=== PATIENT | female | born 1945 | race Caucasian/White ===

== ENCOUNTER 2023-02-22 10:11 | Outpatient (AMB) | payer OTHER, SELFPAY ==
--- NOTE | 2023-02-22 10:13 | A.OFFVIS_ITS ---
Intake Vital Signs 02/22/23 10:15 Height 5 ft 3 in Weight 145 lb 2 oz BMI 25.7 BP 142/78 H Blood Pressure Location Lt brachial Position Sitting Respiration 16 Pulse 81 Pulse Source Pulse Oximeter Pulse Oximetry (%) 96 Oxygen Delivery Method Room Air Intake Visit Reasons: [employer]-Gait disturbance - Confirmed Intake Note: Pt presents to the office for new pt evaluation for gait disturbance. 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 Pt reports sge had left pelvic fx in 2020, and the gait problem started after the pelvic fx. She has jerking movement when she walks. It happens on her left leg, and it happens occasionally. She does not fall, but she could catch herself before falling. She used to ride a bicycle, but not anymore. She always skiing in winter, but she decided not to ski due to osteoporosis. Denies numbness or tigngling on her left leg. Denies any pain her joint or stiffness. Denies light headedness. Denies tremors. Denies difficulty swallowing or drooling. Donny constipation. Aslome REM behavior. Denies difficulty holding urine. [facility] Surgical History (Updated 02/22/23 @ 10:22 by Linda Bowie CMA) H/O foot surgery S/P appendectomy H/O heart surgery Social History (Updated 02/22/23 @ 10:23 by Linda Bowie CMA) Household Members: None Housing: House Alcohol intake: current Comment: wine Patient Tobacco Use Status: Never used Tobacco Review of Systems Const All systems reviewed & are unremarkable except as noted in HPI and below Physical Exam Vital Signs: Last Vital Signs Pulse 81 02/22/23 10:15 Resp 16 02/22/23 10:15 BP 142/78 H 02/22/23 10:15 Pulse Ox 96 02/22/23 10:15 Oxygen Delivery Method Room Air 02/22/23 10:15 BMI result Body Mass Index 25.7 Const Other: walking good steps, left tilted. has small bilateral arm swing. Orientation/consciousness: patient oriented x3 Neuro General: patient oriented x3 Cranial nerves: Yes CN's II-XII intact bilaterally Cognition (Neuro): normal cognition Gait exam (Neuro): Normal gait present (mildly stopped, has good steps, but her left leg little move inward.) Motor exam (neuro): 5/5 motor strength present throughout, Pronator motor function not present and no tremor noted Deep tendon reflexes (DTR's): Rt Biceps (C5, C6): 2+, Left biceps reflex intensity grade: 2+, Right brachioradialis reflex intensity grade: 2+, Left brachioradialis reflex intensity grade: 2+, Right patellar reflex intensity grade: 3+ and Left patellar reflex intensity grade: 3+ Extrem General: Yes full ROM Psych Appearance: grossly normal Mental Status: mental status grossly normal Assessment & Plan Assessment & Plan (1) Gait difficulty: Code(s): R26.9 - Unspecified abnormalities of gait and mobility Plan Pt walks pretty normal, her left leg moves slightly inward. Advised patient to try physical therapy for gait training. However, patient is not interested in physical therapy at this time. Coding Level of Care Code New Pt Level 3 (00811) Diagnoses Gait difficulty R26.9
[2023-02-22 10:15] VITALS: BP 142/78; PULSE 81; RESP 16; O2SAT 96; BMI 25.7
== END 2023-02-22 11:26 | disposition home or self-care (01) ==
PROVIDERS: PCP Internal Medicine; Visit Provider Nurse Practitioner Family
DX: R26.9 Unspecified abnormalities of gait and mobility (principal)
CPT/HCPCS: 99203

== ENCOUNTER → 2023-02-22 10:11 | Outpatient (BNVA) | payer OTHER, SELFPAY | PROVIDERS: PCP Internal Medicine; Visit Provider Nurse Practitioner Family ==